=== PATIENT | male | born 1980 | race Caucasian/White ===

== ENCOUNTER 2021-12-30 14:38 | Outpatient (CLI) | payer BC, SELFPAY ==
--- NOTE | ~2021-12-30 | XR_ITS ---
XR shoulder LT min 2V 12/30/2021 15:18 Indication: Left shoulder pain Procedure: 4 views left shoulder Comparison: No prior studies for comparison. Findings: No fracture, subluxation or dislocation. No significant soft tissue abnormality. No foreign bodies. Mild osteoarthritis of the acromioclavicular joint. Impression: 1: Mild osteoarthritis of the left acromioclavicular joint. Reviewed, dictated and finalized at location B. [facility] Impression: 1: Mild osteoarthritis of the left acromioclavicular joint.
--- NOTE | ~2021-12-30 | XR_ITS ---
XR lumbar spine 2-3V 12/30/2021 15:17 Indication: Chronic back pain Procedure: 3 views lumbar spine Comparison: No prior studies for comparison. Findings: Vertebral body and disc heights are preserved. No fracture or traumatic malalignment. There is disc narrowing at L4-5 and L5-S1. No evidence for spondylolisthesis. Pedicles intact. Sacral fora men are symmetric. Impression: 1: Mild lumbar spondylosis. Reviewed, dictated and finalized at location B. 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
--- NOTE | ~2021-12-30 | XR_ITS ---
XR thoracic spine 3V 12/30/2021 15:17 Indication: Chronic back pain Procedure: 3 views thoracic spine Comparison: 03/08/2011 Findings: There is anatomic alignment of the thoracic spine. Vertebral body heights are maintained. N o paraspinal soft tissue abnormality. Pedicles intact. T12 is not included on the AP view of the thor acic spine. No abnormality of T12 identified on the lateral view. Impression: 1: No significant abnormality of the thoracic spine. Limited study. Reviewed, dictated and finalized at location B. 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 Limited study.
--- NOTE | ~2021-12-30 | XR_ITS ---
XR shoulder RT min 2V 12/30/2021 15:17 Indication: Right shoulder pain Procedure: 4 views right shoulder Comparison: 03/02/2010 Findings: There is moderate degenerative change of the acromioclavicular joint. No fracture or trauma tic malalignment. No significant soft tissue abnormality. No foreign bodies. Impression: 1: Moderate degenerative change of the right acromioclavicular joint. Reviewed, dictated and finalized at location B. 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
== END 2021-12-30 14:39 | disposition home or self-care (01) ==
LOC: CHSIMG 14:43
PROVIDERS: PCP Family Medicine; Visit Provider Family Medicine
DX: M54.6 Pain in thoracic spine (principal); M25.512 Pain in left shoulder; M25.511 Pain in right shoulder
CPT/HCPCS: 72072; 72100; 73030

== ENCOUNTER 2023-09-15 07:15 | Outpatient (CLI) | payer OTHER, SELFPAY ==
--- NOTE | ~2023-09-15 | US_ITS ---
EXAMINATION: US abdomen complete DATE: 09/15/2023 07:45 INDICATION: Abdominal pain TECHNIQUE: Multiple grayscale and Doppler ultrasound images of the abdomen were obtained. COMPARISON: None available FINDINGS: The head and body of the pancreas are normal. The pancreatic tail is obscured by bowel gas. The liver demonstrates increased echogenicity, heterogenous echotexture, and decreased through trans mission. No surface nodularity. Normal hepatopetal flow in the main portal vein. The gallbladder is n ormal with no abnormal wall thickening, pericholecystic fluid or stones. The normal common bile duct measures 3 mm. There was no sonographic Castro sign. The visualized portions of the aorta and inferio r vena cava are normal. The spleen is normal in appearance and measures 11.6 cm. The right kidney measures 10.5 x 4.7 x 5.5 c m. The left kidney measures 13.1 x 6.1 x 6.9 cm. The kidneys demonstrate normal parenchymal echogenic ity. There is no hydronephrosis. IMPRESSION: 1. No sonographic correlate for the patient's symptoms. 2. Diffuse hepatic steatosis. Reviewed, dictated and finalized at location B. [facility] [employer] [employer]
== END 2023-09-15 07:16 | disposition home or self-care (01) ==
PROVIDERS: PCP Family Medicine; Visit Provider Family Medicine
DX: R10.9 Unspecified abdominal pain (principal); K76.0 Fatty (change of) liver, not elsewhere classified
CPT/HCPCS: 76700